=== PATIENT | female | born 1990 ===

== ENCOUNTER 2018-09-01 14:16 | Inpatient (IN) ==
[~2018-09-01 14:16] MED LIST: Famotidine 20 MG/2 ML VIAL IVP ONE; Metoclopramide 10 MG/2 ML VIAL IVP ONE; Oxytocin 20 units/ LR 1000 mL 20 UNIT/1,000 ML BAG IVC ONE; Oxytocin 20 units/ LR 1000 mL 20 UNIT/1,000 ML BAG IVC SCH; Ringers Solution, Lactated 1,000 ML IVC ONE; Ringers Solution, Lactated 1,000 ML IVC SCH
[2018-09-01 15:02] LABS: Amphetamine Screen,Urine Negative ng/mL (Cutoff=1000); Barbiturate Screen,Urine Negative ng/mL (Cutoff=200); Benzodiazepines Screen,Urine Negative ng/mL (Cutoff=200); Cannabinoid Screen,Urine Negative ng/mL (Cutoff = 50); Cocaine Screen,Urine Negative ng/mL (Cutoff= 300); Opiate Screen,Urine Negative ng/mL (Cutoff=300); Phencyclidine Screen,Urine Negative ng/mL (Cutoff=25)
[2018-09-01 15:16] LABS: Basophils # 0.1 K/mcL (0.0-0.2); Basophils % 0.8 %; Eosinophils # 0.2 K/mcL (0.0-0.6); Eosinophils % 1.2 %; Hematocrit 41.6 % (35.3-44.9); Hemoglobin 13.9 g/dL (11.5-15.4); Lymphocytes # 1.4 K/mcL (0.6-4.6); Lymphocytes % 8.8 %; Mean Corpuscular HGB Conc 33.4 g/dL (31.6-35.5); Mean Corpuscular Hemoglobin 30.9 pg (28.0-33.3); Mean Corpuscular Volume 92.4 fL (83.0-100.0); Mean Platelet Volume 11.9 fL (9.4-12.4); Monocytes # 0.8 K/mcL (0.0-1.3); Monocytes % 4.8 %; Neutrophils # 12.8 K/mcL (1.6-8.9); Platelet Count 183 K/mcL (140-400); Red Cell Distribution Width 13.5 % (11.5-14.5); Segmented Neutrophils % 82.4 %
--- NOTE | 2018-09-01 16:06 | Anesthesia Evaluation PreOp ---
Addendum entered and electronically signed by Milton Castellanos CRNA 09/01/18 16:09: Plan spinal anesthetic with general as a backup Original Note: Date of Encounter: 09/01/18 Time of Encounter: 16:04 - Past History Planned Operation: csection Cardiac History: Denies any Significant Hx Pulmonary History: Denies Any Significant HX FOURTH OFFICER History: Denies Any Significant HX Other Medical History: Denies Any Significant HX Anesthesia History: No Prior Anesthetic Complications, Past Anesthesia : Yes (38 wks, G1) Alcohol Use: none Drug use: none - Meds/Allergy Pre-op Review Medications Reviewed: Yes Allergies Reviewed: Yes Beta Blockers on Current Med List: No Anesthesia Results - Labs 09/01/18 14:30 Anesthesia Exam - HEENT Pupil (Motor): Pupils equal Mallampati: II Teeth: Normal Oral Opening: Greater than 3 - FOURTH OFFICER LOC: Oriented FOURTH OFFICER Motor: Normal RUE, Normal LUE, Normal RLE, Normal LLE, Normal Face FOURTH OFFICER Sensory: Normal: RUE, LUE, RLE, LLE, Face - Cardiac Rhythm: Regular Murmur: None JVD: No Carotid Bruit: No - Pulmonary Breath Sounds: bilateral Clear Respiratory Effort: Symmetrical Anesthesia Assess/Plan ASA Score: 2 Level of consciousness: Cooperative Anesthetic Plan: General Monitoring Plan: Standard Monitors Recovery Plan: PACU
[2018-09-01] MEDS ORDERED: cefOXitin 1,000 MG in 0.9 % Sodium Chloride Mini Bag 100 ML IVPB ONE (16:58)
[2018-09-01] MEDS ORDERED: cefOXitin 2,000 MG in 0.9 % Sodium Chloride Mini Bag 100 ML IVPB ONE (17:00)
--- NOTE | 2018-09-01 18:48 | OB/GYN History & Physical ---
Date of Encounter: 09/01/18 Time of Encounter: 18:18 Assessment and Plan (1) 38 weeks gestation of Current visit: Yes Status: Acute (2) Breech presentation Current visit: Yes Status: Acute Patient is aware of the options for delivery. She is electing to have a primary section. Informed consent obtained. Patient is nothing by mouth Qualifiers: Fetus number: single or unspecified fetus Qualified Code(s): O32.1XX0 - Maternal care for breech presentation, not applicable or unspecified (3) heart rate non-reassuring affecting management of mother Current visit: Yes Status: Acute Variable decelerations noted on heart rate monitoring, thought to be related to the nuchal cord (4) Nuchal cord with compression, delivered, current hospitalization Current visit: Yes Status: Acute Primary scheduled History of Present Illness Chief complaint: Primary C/S Breech HPI: Ms. Bedolla is a 28 year old female with an EDC of 09/15/18 by LMP and a 7 week 4 day ultrasound, currently 38 weeks 0 days who presents to labor and delivery being sent over by Dr. Trinidad for a primary . She was noted to be breech during the ultrasound for position on 08/30/18. At that time there was a nuchal cord noted. Amniotic fluid was normal. The patient and family were interested in discussing a version or referral for a vaginal delivery. At the time of the ultrasound with the finding of the nuchal cord, patient and were requesting to have a scheduled . The patient came back to the office 2 days later to see Dr. Trinidad and discuss this further. They were very concerned because the FOB had a sister who had a term IUFD which was diagnosed to be secondary to a nuchal cord. Dr. Trinidad then put the patient on the NST and variable decels were seen with every acceleration during the NST. The patient was sent over to labor and delivery. She had to wait due to having eaten. heart rate was reassuring since then but irregular contractions have been seen. The patient and do until 39 weeks not feel comfortable waiting with the risk of an IUFD due to a nuchal cord with symptoms having been seen. They are aware of the risk of having a near term fetus, but that this risk is worth the alternative of an IUFD. 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 I feel that this is an informed consent. Her blood type is A+, she is rubella nonimmune, varicella immune, hepatitis B surface antigen negative, syphilis screen negative, GBS negative. Dr. Trinidad and I have discussed her case and agree to proceed with a primary section Past Med Surg Social Fam HX - Past Medical History Source: patient, old records reviewed Medical history: no medical history Psychiatric history: no psych history - Past Surgical History Surgical History: no surgical history - Social History Smoking Status: Never smoker Smokeless Tobacco Status: No Alcohol use: none Drug use: none - Family History Mother Living Status: Still Living Hx Family Cardiac Disorders: No Hx Family Respiratory Disorders: No Hx Family Cancer: No Hx Family GI Disorders: No Hx Family Genitourinary Disorders: No Hx Family Endocrine Disorder: No Hx Family Musculoskeletal Disorders: No Hx Family Neuromuscular Disorders: No Hx Family Neurologic Disorders: No Hx Family HEENT Disorders: No Hx Family Autoimmune Disorders: No Hx Family Reproductive Disorders: No Hx Family Psychosocial Disorders: No Hx Family Medical Disorders: No Obstetrical History - Pregnancies : 1 Medications and Allergies Vits #90/Iron Fum/FA [ Formula Tablet] 100 mg PO DAILY PRN 09/01/18 [History] Allergy/AdvReac Type Severity Reaction Status Date / Time No Known Allergies Allergy Verified 09/01/18 16:28 Review of System OB All systems PM: reviewed and no additional remarkable complaints except as stated - Constitutional Constitutional ROS IM: as per HPI, fatigue, weight gain Exam - Vital Signs Vital signs: Afebrile, vital signs stable - Constitutional Constitutional: well developed, well nourished, no acute distress - HEENT HEENT: Normocephaly, Mucus Membranes Moist - Neck Neck exam: normal inspection, supple - Lungs Respiratory exam: CTAB - Cardiovascular Cardiovascular exam: RRR - Abdomen Abdomen: Present: bowel sounds normal, gravid, non tender - Extremities Extremities exam: normal inspection, warm Deep Tendon Reflex Grade: 2+ Normal Results Result Diagrams: 09/01/18 14:30 Abnormal lab results WBC 15.6 K/mcL (4.3-11.1) H 09/01/18 14:30 Neutrophils # 12.8 K/mcL (1.6-8.9) H 09/01/18 14:30 All other labs normal. - VTE Documentation of Mechanical Device: Intermittent pneumatic compression device
[2018-09-01] MEDS ORDERED: *HR* Morphine Sulfate/PF 10 MG/10 ML AMPUL ONE (20:35)
[2018-09-01] MEDS ORDERED: Lidocaine -MPF 1% 5 ML AMPUL ONE (20:36)
[2018-09-01] MEDS ORDERED: Bupivacaine/PF 0.75% in Dex 2 ML AMPUL INFILT ONE (20:36)
[2018-09-01] MEDS ORDERED: *HR* FentaNYL (PF) 100 MCG/2 ML VIAL ONE (20:36)
[2018-09-01] MEDS ORDERED: Ondansetron 4 MG/2 ML VIAL ONE (23:46)
--- NOTE | 2018-09-02 00:24 | Anesthesia Evaluation Post Op ---
Date of Encounter: 09/02/18 Time of Encounter: 00:22 - Vital Signs Vital Signs: BP 123/78 HR 112 RR 18 SPO2 100 - Lungs Lungs: Clear Ascult./Percussion - Airway Airway: Non-obstructed - Cardiovascular Regular Rate - Mental Status Mental Status: Alert & Oriented, Answers Appropriately - Pain Pain Scale: 0 - Nausea Vomiting Nausea Vomiting: Not Present - Hydration Hydration: NPO, Palmer catheter - Discharge PostOp Status: Transfer Patient to floor
[2018-09-02] MEDS ORDERED: Acetaminophen IV 1,000 MG/100 ML INFUS..BTL IVPB ONE (00:29)
[2018-09-02] MEDS ORDERED: *HR* HYDROmorphone (PF) 1 MG/ML SYRINGE IVP PRN (00:29)
[2018-09-02] MEDS ORDERED: Ketorolac 30 MG/ML VIAL IVP ONE (00:29)
[2018-09-02] MEDS ORDERED: *HR* Promethazine 25 MG/ML VIAL IVP PRN (00:29)
[2018-09-02] MEDS ORDERED: *HR* Nalbuphine 10 MG/ML AMPUL IV PRN (00:29)
[2018-09-02] MEDS ORDERED: *HR* Meperidine 25 MG/ML SYRINGE IVP PRN (00:29)
[2018-09-02] MEDS ORDERED: Ondansetron 4 MG/2 ML VIAL IVP ONE (00:29)
--- NOTE | 2018-09-02 00:39 | OB/GYN Procedure Note ---
Section - Date of procedure: 09/02/18 Preop diagnosis: breech, other (Nuchal cord, nonreassuring tracing, family history of IUFD with nuchal cord at term) Post-op diagnosis: same Procedure: section, primary low transverse Surgeon: Hannah Yates Blood Loss: 300 Was there an circulation assistant present: No Restaurant Associate: Milton Castellanos Anesthesia Type: Spinal section complications: none Disposition: L&D Recovery Room Specimens: Placenta, Cord segment - (s) A Infant Delivery Date: 09/01/18 Delivery Time: 23:18 Presentation: delvis breech Route of delivery: other (c/s) Gender: Female Viability: Viable Pounds: 6 Ounces: 12 Gram Weight: 3.065 kg at 1 minute: 9 at 5 minutes: 9 Placenta: spontaneous, uterine exploration Cord: nuchal cord, 3 umbilical vessels, delivered through nuchal - Narrative Narrative: The patient was brought to the operating room, sign in completed, given spinal anesthesia then prepped and draped in the usual sterile fashion. A timeout was completed. A Pfannenstiel skin incision was then made and sharply dissected down to the fascia. The fascia was then incised in the midline and extended bluntly and sharply bilaterally. 2 straight Callaway clamps are placed on the inferior fascial edge and the fascia was bluntly and sharply dissected from rectus muscles, this was repeated superiorly. The rectus muscles were bluntly and sharply bissected. Peritoneum was bluntly entered and extended bluntly superiorly and inferiorly. A bladder blade was placed to protect the bladder. The Vesicouterine peritoneum was incised with Metzenbaum scissors and extended laterally then the bladder flap was reflected inferiorly and the bladder blade was replaced to protect the bladder. A low transverse incision was then made in the lower uterine segment down to the amnion. This was then bluntly extended laterally bilaterally. The amnion was then bluntly entered, clear fluid was seen, and the infant was delivered in delvis breech presentation. The was vigorous and suctioned on the operating field. After delayed cord clamping, the was handed to the nursery care team. A cord segment was obtained. IV Pitocin was started. The placenta was delivered spontaneous and intact. The uterine cavity was digitally inspected and noted to be clear and then was wiped clean with a moist lap sponge. Tubes and ovaries were inspected and found to be grossly normal. A ring clamp was used to dilate the cervix and then discarded off the operating field. Ring clamps were placed on the edges of the uterine incision and the uterine incision was closed using 0 Vicryl suture in a running locking fashion. A second imbricating layer completed the uterine closure. Good hemostasis was achieved. The pelvic cavity was copiously irrigated with sterile water and good hemostasis was again noted. Peritoneal edges and rectus muscles were inspected and good hemostasis was achieved. The fascia was then closed using an 0 PDS loop in a running nonlocking fashion. Subcutaneous tissue was irrigated with sterile water good hemostasis was achieved. The subcutaneous layer was closed with 0-stratafix in a running nonlocking fashion. The skin was then closed with 4-0 Monocryl in a subcuticular fashion. A Perineo dressing was used to reinforce the skin closure. The hsu was noted to be draining clear yellow urine at the end of the procedure. All sponge and instrument counts were correct at the end of the procedure. The patient was taken to the recovery room in stable condition
[2018-09-02] MEDS ORDERED: Ondansetron 4 MG/2 ML VIAL IVP PRN (02:39)
[2018-09-02] MEDS ORDERED: Oxytocin 20 units/ LR 1000 mL 20 UNIT/1,000 ML BAG IVC SCH (02:39)
[2018-09-02] MEDS ORDERED: Sennosides 8.6 MG TABLET PO PRN (02:39)
[2018-09-02] MEDS ORDERED: Measles/Mumps/Rubella Vacc 0.5 ML VIAL SQ ONE (02:39)
[2018-09-02] MEDS ORDERED: *HR* OxyCODONE Immed Rel 5 MG TABLET PO PRN (02:39)
[2018-09-02] MEDS ORDERED: Metoclopramide 10 MG/2 ML VIAL IVP PRN (02:39)
[2018-09-02] MEDS ORDERED: Simethicone 80 MG TAB.CHEW PO PRN (02:39)
[2018-09-02] MEDS: Prenatal Vit/FA 1 EACH TABLET PO SCH (08:20)
[2018-09-02] MEDS: Ibuprofen 600 MG TABLET PO SCH ×2 (08:20→17:30)
[2018-09-02] MEDS: Acetaminophen 325 MG TABLET PO SCH (17:30)
--- NOTE | 2018-09-02 21:00 | OB/GYN Progress Note ---
Date of Encounter: 09/02/18 Time of Encounter: 21:00 - Assessment and Plan (1) Status post section Current Visit: Yes Status: Acute Pt s/p on 09/01 Pain currently controlled with Tylenol and motrin VSS Not anemic Incision site with bandage to area, scant serosanguinous fluid on bandage Anticipate D/C 09/03 or 09/04 (2) Breast feeding status of mother Current Visit: Yes Status: Acute support given to patient Will offer prescription for breast pump at [place] Subjective - Subjective Principal diagnosis: s/p Interval history: Assessment and Plan (1) 38 weeks gestation of Current visit: Yes Status: Acute (2) Breech presentation Current visit: Yes Status: Acute Patient is aware of the options for delivery. She is electing to have a primary section. Informed consent obtained. Patient is nothing by mouth Qualifiers: Fetus number: single or unspecified fetus Qualified Code(s): O32.1XX0 - Maternal care for breech presentation, not applicable or unspecified (3) heart rate non-reassuring affecting management of mother Current visit: Yes Status: Acute Variable decelerations noted on heart rate monitoring, thought to be related to the nuchal cord (4) Nuchal cord with compression, delivered, current hospitalization Current visit: Yes Status: Acute Primary scheduled History of Present Illness Chief complaint: Primary C/S Breech HPI: Ms. Bedolla is a 28 year old female with an EDC of 09/15/18 by LMP and a 7 week 4 day ultrasound, currently 38 weeks 0 days who presents to labor and delivery being sent over by Dr. Trinidad for a primary . She was noted to be breech during the ultrasound for position on 08/30/18. At that time there was a nuchal cord noted. Amniotic fluid was normal. The patient and family were interested in discussing a version or referral for a vaginal delivery. At the time of the ultrasound with the finding of the nuchal cord, patient and were requesting to have a scheduled . The patient came back to the office 2 days later to see Dr. Trinidad and discuss this further. They were very concerned because the FOB had a sister who had a term IUFD which was diagnosed to be secondary to a nuchal cord. Dr. Trinidad then put the patient on the NST and variable decels were seen with every acceleration during the NST. The patient was sent over to labor and delivery. She had to wait due to having eaten. heart rate was reassuring since then but irregular contractions have been seen. The patient and do until 39 weeks not feel comfortable waiting with the risk of an IUFD due to a nuchal cord with symptoms having been seen. They are aware of the risk of having a near term fetus, but that this risk is worth the alternative of an IUFD. 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 Her blood type is A+, she is rubella nonimmune, varicella immune, hepatitis B surface antigen negative, syphilis screen negative, GBS negative. Dr. Trinidad and I have discussed her case and agree to proceed with a primary section Past Med Surg Social Fam HX - Past Medical History Source: patient, old records reviewed Medical history: no medical history Psychiatric history: no psych history - Past Surgical History Surgical History: no surgical history - Social History Smoking Status: Never smoker Smokeless Tobacco Status: No Alcohol use: none Drug use: none - Family History Mother Living Status: Still Living Hx Family Cardiac Disorders: No Hx Family Respiratory Disorders: No Hx Family Cancer: No Hx Family GI Disorders: No Hx Family Genitourinary Disorders: No Hx Family Endocrine Disorder: No Hx Family Musculoskeletal Disorders: No Hx Family Neuromuscular Disorders: No Hx Family Neurologic Disorders: No Hx Family HEENT Disorders: No Hx Family Autoimmune Disorders: No Hx Family Reproductive Disorders: No Hx Family Psychosocial Disorders: No Hx Family Medical Disorders: No Obstetrical History - Pregnancies : 1 Medications and Allergies Vits #90/Iron Fum/FA [ Formula Tablet] 100 mg PO DAILY PRN 09/01/18 [History] Allergy/AdvReac Type Severity Reaction Status Date / Time No Known Allergies Allergy Verified 09/01/18 16:28 Review of System OB All systems PM: reviewed and no additional remarkable complaints except as stated - Constitutional Constitutional ROS IM: as per HPI, fatigue, weight gain Exam - Vital Signs Vital signs: Afebrile, vital signs stable - Constitutional Constitutional: well developed, well nourished, no acute distress - HEENT HEENT: Normocephaly, Mucus Membranes Moist - Neck Neck exam: normal inspection, supple - Lungs Respiratory exam: CTAB - Cardiovascular Cardiovascular exam: RRR - Abdomen Abdomen: Present: bowel sounds normal, gravid, non tender - Extremities Extremities exam: normal inspection, warm Deep Tendon Reflex Grade: 2+ Normal Results Result Diagrams: 09/01/18 14:30 Abnormal lab results WBC 15.6 K/mcL (4.3-11.1) H 09/01/18 14:30 Neutrophils # 12.8 K/mcL (1.6-8.9) H 09/01/18 14:30 All other labs normal. - VTE Documentation of Mechanical Device: Intermittent pneumatic compression device Patient reports: appetite normal, voiding normally, pain well controlled : doing well Objective - Vital Signs Latest vital signs: Vital Signs Temp Pulse Resp BP Pulse Ox 09/02/18 15:47 98.6 F 76 14 96/52 95 09/02/18 13:27 97.8 F 79 14 109/68 97 09/02/18 08:23 97.3 F L 95 16 114/73 98 09/02/18 05:45 98.0 F 68 14 101/68 99 09/02/18 04:40 98.1 F 72 14 96/60 100 09/02/18 03:45 97.7 F 76 14 103/68 99 09/02/18 03:15 97.9 F 79 14 110/68 99 09/02/18 02:45 97.7 F 96 14 107/69 98 Intake and Output 09/02/18 09/02/18 09/02/18 07:59 15:59 23:59 Intake Total 1000 / 1000 Output Total 200 / 200 1050 / 1050 500 / 500 Balance -200 / -200 -1050 / -1050 500 / 500 Intake: IV Fluids 1000 / 1000 Pitocin 20 unit In 1,000 ml @ 1000 / 1000 125 mls/hr IVC .Q8H [facility] Rx#: [id number] Output: Urine 450 / 450 500 / 500 Emesis 200 / 200 Catheter 600 / 600 Other: Stool Characteristics Normal for Patient Weight 78.488 kg Patient Weight 09/02/18 23:59 Weight 78.488 kg - Exam Lungs: bilateral: normal Chest: Normal S1, Normal S2 Extremities: Present: normal. Absent: tenderness, edema Abdomen: Present: normal appearance, soft Incision: Present: normal Uterus: Present: normal, firm Fundal Height: 0 (@u)
[2018-09-03] MEDS: Ibuprofen 600 MG TABLET PO SCH (01:46)
[2018-09-03] MEDS: Acetaminophen 325 MG TABLET PO SCH ×3 (01:47→10:39)
[2018-09-03] MEDS: Prenatal Vit/FA 1 EACH TABLET PO SCH (07:53)
[2018-09-03] MEDS ORDERED: Lanolin 7 G OINT...G. TP PRN (08:50)
[2018-09-03 12:04] VITALS: BP 100/60
--- NOTE | 2018-09-03 12:12 | Discharge Summary ---
Date of Encounter: 09/03/18 Time of Encounter: 11:58 - Discharge Diagnosis (1) Status post primary low transverse section Priority: Primary Status: Acute Comments: Feeling well Tolerating regular diet Pain well-controlled with by mouth pain meds Ambulating independently Voiding independently Lochia light Passing flatus, no BM yet Vital signs stable Discharge home today (2) Breast feeding status of mother Priority: Secondary Status: Acute Comments: Community resources provided - Discharge Medications Prescriptions: New Acetaminophen [Tylenol] 325 mg PO Q6HR tablet Ibuprofen [Motrin] 600 mg PO Q6HR #30 tablet OxyCODONE/APAP 5/325 [Percocet 5/325 MG] 1 each PO Q6HR PRN 5 Days #20 tablet PRN Reason: Pain Docusate [Colace] 100 mg PO BID #30 capsule Lanolin [Lansinoh] 1 appl TP TID PRN oint...g. PRN Reason: Nipple pain Mupirocin [Bactroban Oint] 1 appl TP BID tube Continue Vits #90/Iron Fum/FA [ Formula Tablet] 100 mg PO DAILY PRN PRN Reason: Home Medications: Vits #90/Iron Fum/FA [ Formula Tablet] 100 mg PO DAILY PRN 09/01/18 [History] Acetaminophen [Tylenol] 325 mg PO Q6HR tablet 09/03/18 [Rx] Docusate [Colace] 100 mg PO BID #30 capsule 09/03/18 [Rx] Ibuprofen [Motrin] 600 mg PO Q6HR #30 tablet 09/03/18 [Rx] Lanolin [Lansinoh] 1 appl TP TID PRN oint...g. 09/03/18 [Rx] Mupirocin [Bactroban Oint] 1 appl TP BID tube 09/03/18 [Rx] OxyCODONE/APAP 5/325 [Percocet 5/325 MG] 1 each PO Q6HR PRN 5 Days #20 tablet 09/03/18 [Rx] Allergies/Adverse Reactions: Allergy/AdvReac Type Severity Reaction Status Date / Time No Known Allergies Allergy Verified 09/01/18 16:28 Data Procedures and tests throughout hospitalization: Laboratory Tests 09/01/18 09/01/18 14:30 14:30 WBC 15.6 H RBC 4.50 Hgb 13.9 Hct 41.6 MCV 92.4 MCH 30.9 MCHC 33.4 RDW 13.5 Plt Count 183 MPV 11.9 Immature Gran % 2.0 Seg Neutrophils % 82.4 Lymphocytes % 8.8 Monocytes % 4.8 Eosinophils % 1.2 Basophils % 0.8 Neutrophils # 12.8 H Lymphocytes # 1.4 Monocytes # 0.8 Eosinophils # 0.2 Basophils # 0.1 Urine Opiates Screen Negative Ur Barbiturates Screen Negative Ur Phencyclidine Scrn Negative Ur Amphetamines Screen Negative U Benzodiazepines Scrn Negative Urine Cocaine Screen Negative U Marijuana (THC) Screen Negative Ur Drug Screen Interp See Below Date of admission: 09/01/18 14:16 Primary care physician: PCP NONE Discharging clinician: Naomie Leal Anticipated date of discharge: 09/03/18 - Patient Status Disposition: Home, Self-Care Condition: Good Functional capacity at discharge: independent ambulation Overall status at discharge: patient is progressing back to baseline - Discharge Instructions Follow Up With: NONE,PCP [Primary Care Provider] - Margaret Trinidad DO [Partnered Physician] - - Diet and Activity Activity: increase activity as tolerated Diet: regular diet Hospital Course Reason for admission: IUP at term, ROM Delivery: section Episiotomy: none Laceration: none Other procedures: none complications: none Discharge diagnosis: IUP at term delivered [place] baby: female Time Attestation: Total time spent providing and/or coordinating discharge services: Time Spent: Less than 30 minutes - VTE Documentation of Mechanical Device: Intermittent pneumatic compression device Exam - Constitutional Vitals: Temp Pulse Resp BP Pulse Ox 98.6 F 76 14 96/52 95 09/02/18 15:47 09/02/18 15:47 09/02/18 15:47 09/02/18 15:47 09/02/18 15:47 General appearance IM: A&O X 3 - Respiratory Respiratory exam: Present: CTAB - Cardiovascular Cardiovascular exam IM: Present: RRR, +S1, +S2 - GI/Abdominal GI/Abdominal exam IM: normal bowel sounds, no peritoneal signs Incision: normal, dry, intact - Rectal Rectal exam: deferred - Uterine Tone: Firm Uterus Position: At Umbilicus, Midline - Extremities Exam Extremities exam IM: Present: full ROM, normal capillary refill, normal inspection, radial pulses palpable and symmetrical - Neurological Exam Neurological exam: alert, CN II-XII intact, normal gait, oriented X3, reflexes normal, no focal deficits, strengths equal and symetr throughout - Psychiatric Additional comments: Signs and symptoms of PPD discussed with patient and family and both verbalize understanding of when to seek help.
[2018-09-03] MEDS ORDERED: Measles/Mumps/Rubella Vacc 0.5 ML VIAL SQ ONE (13:00)
== END 2018-09-03 14:45 | disposition home or self-care (01) | DRG 788 ==
LOC: 1NENULAB → 1NENUOBS 09-02 04:01
PROVIDERS: ADMIT Obstetrics & Gynecology; ATTEND Obstetrics & Gynecology